=== PATIENT | female | born 1955 | race Caucasian/White ===

== ENCOUNTER 2023-02-06 09:04 | Outpatient (CLI) | payer MEDICARE ==
[2023-02-06] MEDS ORDERED: iohexol 350MG/ML 100ml bottle IV ONE (10:38)
== END 2023-02-06 23:59 | disposition home or self-care (01) ==
LOC: RAD 09:04
PROVIDERS: ATTEND Internal Medicine Interventional Cardiology
DX: I11.0 Hypertensive heart disease with heart failure (principal); I71.21 Aneurysm of the ascending aorta, without rupture; I27.81 Cor pulmonale (chronic); M36.8 Systemic disorders of connective tissue in other diseases classified elsewhere; E78.5 Hyperlipidemia, unspecified; F17.211 Nicotine dependence, cigarettes, in remission; Z68.38 Body mass index [BMI] 38.0-38.9, adult; I50.9 Heart failure, unspecified; I25.10 Atherosclerotic heart disease of native coronary artery without angina pectoris; I70.0 Atherosclerosis of aorta; I70.8 Atherosclerosis of other arteries
CPT/HCPCS: 71275; J3490; Q9967

== ENCOUNTER 2023-02-06 09:30 | Outpatient (CLI) | payer MEDICARE ==
[2023-02-06 10:15] LABS: BASOPHILS # (AUTO) 0.1 X10'3 (0-0.2); EOSINOPHILS # (AUTO) 0.2 X10'3 (0-0.9); EOSINOPHILS % (AUTO) 3.1 % (0-6); HEMATOCRIT 47.4 % (35.0-45.0); HEMOGLOBIN 16.1 g/dl (12.0-16.0); LYMPHOCYTES # (AUTO) 1.1 X10'3 (1.1-4.8); LYMPHOCYTES % (AUTO) 17.2 % (21-51); MEAN CORPUSCULAR HEMOGLOBIN 31.3 PG (27.0-31.0); MEAN CORPUSCULAR HGB CONC 33.9 g/dL (33.0-36.5); MEAN CORPUSCULAR VOLUME 92.1 FL (78-98); MEAN PLATELET VOLUME 9.7 FL (7.4-10.4); MONOCYTES # (AUTO) 0.7 X10'3 (0-0.9); MONOCYTES % (AUTO) 10.9 % (2-12); NEUTROPHILS # (AUTO) 4.4 X10'3 (1.8-7.7); NEUTROPHILS % (AUTO) 67.8 % (42-75); PLATELET COUNT 219 X10'3 (140-440); RED BLOOD COUNT 5.15 X10'6 (4.20-5.60); RED CELL DISTRIBUTION WIDTH 13.2 % (11.5-14.5); WHITE BLOOD COUNT 6.4 X10'3 (4.5-11.0)
[2023-02-06 10:32] LABS: APTT 28 SECONDS (22-32); PROTHROMBIN TIME 10.5 SECONDS (9.0-12.0)
[2023-02-06 10:34] LABS: ALBUMIN 4.2 G/DL (3.4-5.0); ANION GAP 6 (8-16); BLOOD UREA NITROGEN 19 MG/DL (7-18); BUN/CREATININE RATIO 17.3 (10.0-20.0); CALCIUM 10.2 MG/DL (8.5-10.1); CHLORIDE 105 MMOL/L (99-107); CHOL/HDL RATIO 2.1 (0.00-4.99); CHOLESTEROL 132 MG/DL (0-200); GLUCOSE 96 MG/DL (70-104); HDL CHOLESTEROL 62 MG/DL (35-60); LDL CHOLESTEROL 55 MG/DL (50-100); SODIUM 143 MMOL/L (135-145); TOTAL CARBON DIOXIDE 32.5 MMOL/L (24-32); TRIGLYCERIDES 134 MG/DL (20-135); eGFR 50 ML/MIN
[2023-02-06 10:37] LABS: POTASSIUM 4.3 MMOL/L (3.5-5.1)
== END 2023-02-06 23:59 | disposition home or self-care (01) ==
LOC: LAB 09:30 → EDSTATUS 02-11 15:30
PROVIDERS: ATTEND Student in an Organized Health Care Education/Training Program
DX: Z01.812 Encounter for preprocedural laboratory examination (principal); I11.0 Hypertensive heart disease with heart failure; E78.5 Hyperlipidemia, unspecified; I50.9 Heart failure, unspecified; R94.30 Abnormal result of cardiovascular function study, unspecified
CPT/HCPCS: 36415; 80048; 80061; 85025; 85610; 85730